=== PATIENT | male | born 1960 | race Caucasian/White ===

== ENCOUNTER 2024-07-17 08:41 | Day surgery (SDC) | payer OTHER ==
[~2024-07-17] VITALS: Ht 177.8 cm; Wt 96.0 kg
[~2024-07-17 08:41] MED LIST: AMOCLA875 PO; Bupivacaine 0.5% HCl 5 MG/ML 30MLVIAL ONE; HYDR1TAB94 PO
[2024-07-17] MEDS ORDERED: Lactated Ringer's 1,000 ML IV ONE ×3 (09:15→10:10)
[2024-07-17] MEDS ORDERED: MONDOXYNE NL100 MG (09:17)
[2024-07-17] MEDS ORDERED: METFORMIN HCL500 M2 (09:21)
[2024-07-17] MEDS ORDERED: CARVEDILOL25 M9 (09:22)
[2024-07-17] MEDS ORDERED: GLIP5 (09:23)
[2024-07-17] MEDS ORDERED: HYDRA50 (09:24)
[2024-07-17] MEDS ORDERED: LOSA50 (09:26)
[2024-07-17] MEDS ORDERED: CeFAZolin Sodium 2,000 MG VIAL ONE (09:36)
[2024-07-17] MEDS ORDERED: NS 50 ML IV ONE (09:37)
[2024-07-17] MEDS ORDERED: propofoL 40 ML IV ONE (10:08)
[2024-07-17] MEDS ORDERED: Phenylephrine HCl 100 MCG/ML-NS 10MLSYR (1MG/10ML) ONE (10:21)
--- NOTE | 2024-07-17 10:24 | NUR ---
07/17/24 1024 Yvette Bach PT HAS OPEN AREA TO RIGHT 4TH TOE
[2024-07-17] MEDS ORDERED: Bupivacaine 0.5% HCl 5 MG/ML 30MLVIAL INJ ONE (10:31)
[2024-07-17 11:02] VITALS: BP 119/81
--- NOTE | 2024-07-17 12:31 | NUR ---
07/17/24 1231 LUCRETIA KLEIN PT COMBATIVE WITH MED TRANS SETTLEMENT AGENT WHEN TOLD HE WOULD NEED TO SCHEDULE ANOTHER RIDE TO [employer]OPER SCRIPT FROM PHARM. ISSUE RESOLVED AND PT LEFT WITH TRANSPORTER. END NOTE RDS
--- NOTE | 2024-07-17 14:18 | NUR ---
07/17/24 1418 EL ALCARAZ PT DOING WELL. VITALS STRIP DID NOT PRINT. PT WAS ALERT AND ORIENTED PRIOR TO DC.
== END 2024-07-17 11:45 | disposition home or self-care (01) ==
LOC: ORSCSDS 08:41
PROVIDERS: Podiatrist Foot & Ankle Surgery
PROC: 0Y6T0Z0 Detachment at Right 3rd Toe, Complete, Open Approach (ICD-10-PCS; principal; 2024-07-17 10:15)
PROC: 0Y6V0Z0 Detachment at Right 4th Toe, Complete, Open Approach (ICD-10-PCS; principal; 2024-07-17 10:15)
DX: E11.621 Type 2 diabetes mellitus with foot ulcer (principal); M86.8X7 Other osteomyelitis, ankle and foot; I10 Essential (primary) hypertension; Z79.84 Long term (current) use of oral hypoglycemic drugs; Z79.899 Other long term (current) drug therapy
CPT/HCPCS: 82947; 88305; J0690; J2371; J2704; J7120

== ENCOUNTER → 2024-10-23 | Outpatient (CLI) | payer MEDICARE, OTHER ==
[~2024-10-23] MED LIST changes: -Bupivacaine 0.5% HCl 5 MG/ML 30MLVIAL ONE; +CARVEDILOL25 M9; +GLIP5; +HYDRA50; +LOSA50; +METFORMIN HCL500 M2; +MONDOXYNE NL100 MG
[2024-10-23 16:43] LABS: Source, Urine Voided
[2024-10-23 17:31] LABS: Appearance, Urine Clear (Clear); Bilirubin, Urine Neg (Neg); Blood, Urine 1+ (Neg); Color, Urine Yellow (P-Yellow); Glucose Qualitative, Urine 3+ (Neg); Ketones, Urine Neg (Neg); Leukocyte Esterase, Urine Neg (Neg); Nitrite, Urine Neg (Neg); Protein, Urine 1+ (Neg); Specific Gravity, Urine 1.025 (1.003-1.022); Urobilinogen, Urine NORM (Normal)
[2024-10-23 17:39] LABS: Bacteria Few /hpf; Squamous Epithelial Cells Rare /hpf (Few); White Blood Cells, Urine 0-2 /hpf (0-5)
== END ==
LOC: LAB SHORT 16:38 → LAB 16:38
PROVIDERS: Student in an Organized Health Care Education/Training Program
DX: R10.9 Unspecified abdominal pain (principal)
CPT/HCPCS: 81001

== ENCOUNTER 2025-11-05 03:11 | Day surgery (SDC) | payer MEDICARE, OTHER ==
[2025-11-05] MEDS ORDERED: Lidocaine HCl 4% Cream 5 GM ONE (12:06)
== END 2025-11-05 23:00 | disposition home or self-care (01) ==
LOC: WOUND 03:11
DX: E11.621 Type 2 diabetes mellitus with foot ulcer (principal); L97.422 Non-pressure chronic ulcer of left heel and midfoot with fat layer exposed; E11.42 Type 2 diabetes mellitus with diabetic polyneuropathy; I10 Essential (primary) hypertension
CPT/HCPCS: A9270; G0463

== ENCOUNTER 2025-11-10 00:24 | Day surgery (SDC) | payer MEDICARE, OTHER | END 2025-11-10 23:00 | disposition home or self-care (01) | LOC: WOUND 00:24 | DX: E11.621 Type 2 diabetes mellitus with foot ulcer (principal); L97.422 Non-pressure chronic ulcer of left heel and midfoot with fat layer exposed; E11.40 Type 2 diabetes mellitus with diabetic neuropathy, unspecified; I10 Essential (primary) hypertension; E53.8 Deficiency of other specified B group vitamins; E55.9 Vitamin D deficiency, unspecified | CPT/HCPCS: 36415; 82306; 82607; 82746 ==

== ENCOUNTER 2025-11-28 03:28 | Inpatient (IN) | payer MEDICARE, OTHER ==
[~2025-11-28] VITALS: Ht 180.3 cm; Wt 91.0 kg
[2025-11-28] VITALS (7 sets, daily range): BP systolic 97–182; BP diastolic 58–95
[~2025-11-28 03:28] MED LIST changes: -CARVEDILOL25 M9; +CARVEDILOL25 M9 PO; -GLIP5; +GLIP5 PO; -LOSA50; +LOSA50 PO; -METFORMIN HCL500 M2; +METFORMIN HCL500 M2 PO
[2025-11-28 04:37] LABS: BASOPHILS ABSOLUTE AUTO 0.03 K/mm3 (0.00-0.23); BASOPHILS PERCENT AUTO 0 % (0-2); EOSINOPHILS ABSOLUTE AUTO 0.09 K/mm3 (0.00-0.68); EOSINOPHILS PERCENT AUTO 1 % (0-6); Hematocrit 34.5 % (37.0-53.0); Hemoglobin 12.2 g/dL (13.5-17.5); IMMATURE GRAN ABSOLUTE AUTO 0.04 K/mm3 (0.00-0.10); IMMATURE GRAN PERCENT AUTO 0 % (0-1); LYMPHOCYTES ABSOLUTE AUTO 0.65 K/mm3 (0.84-5.20); LYMPHOCYTES PERCENT AUTO 5 % (21-46); MONOCYTES ABSOLUTE AUTO 1.19 K/mm3 (0.16-1.47); MONOCYTES PERCENT AUTO 10 % (4-13); Mean Corpuscular HGB Conc 35.4 g/dL (31.5-36.5); Mean Corpuscular Volume 93 fL (80-100); NEUTROPHILS ABSOLUTE AUTO 10.33 K/mm3 (1.96-9.15); NEUTROPHILS PERCENT AUTO 84 % (41-73); NRBC ABSOLUTE 0.00 K/mm3 (0.00-0.02); NRBC Auto 0.0 /100 WBC (0.0-0.2); Platelet Count 148 K/mm3 (150-400); RDW Coefficient Variation 12.3 % (11.7-14.2); RDW Standard Deviation 42.3 fL (35.1-46.3)
[2025-11-28 05:25] LABS: Alanine Aminotransfer (ALT/SGP 19 U/L (12-78); Albumin, Blood 3.0 g/dL (3.4-5.0); Albumin/Globulin Ratio 0.9 (0.8-1.8); Anion Gap 8 mmol/L (3-11); Aspartate Aminotrans (AST/SGOT 13 U/L (12-37); Bilirubin, Total 1.2 mg/dL (0.1-1.0); Blood Urea Nitrogen 17 mg/dL (8-24); CO2, Blood 28 mmol/L (21-32); Calcium, Blood 8.9 mg/dL (8.5-10.1); Chloride, Blood 99 mmol/L (98-108); Creatinine, Blood 0.71 mg/dL (0.60-1.20); Globulin, Blood 3.5 g/dL (2.2-4.0); Glucose, Blood 154 mg/dL (70-99); Potassium, Blood 3.9 mmol/L (3.5-5.5); Sodium, Blood 131 mmol/L (136-145); Total Protein, Blood 6.5 g/dL (6.4-8.2)
[2025-11-28 05:40] LABS: C-REACTIVE PROTEIN, EXT RANGE >19.000 mg/dL (0.000-0.300)
[2025-11-28] MEDS ORDERED: CefTRIAXone Sodium 1,000 MG in NS 100 ML IV ONE (05:45)
[2025-11-28] MEDS ORDERED: FLU VACC TS2025(65UP)/MF59C/PF 45 MCG/0.5 ML SYRINGE IM SCH (07:10)
[2025-11-28] MEDS ORDERED: HYDROmorphone HCl/Pf 1MG SYR IV PRN (07:10)
[2025-11-28] MEDS ORDERED: NS 1,000 ML IV SCH (07:10)
--- NOTE | 2025-11-28 11:45 | NUR ---
PT ARRIVED TO THE ROOM FROM ER AT 0935. PT ORIENTED TO ROOM AND UNIT. CALL LIGHT PLACED WITHIN REACH.
--- NOTE | 2025-11-28 15:07 | NUR ---
DR. WESLEY ROUNDED AT 1420 AND DID A BEDSIDE DEBRIDEMENT OF THE L FOOT ULCER. PT TOLERATED WELL, PHOTO OF THE WOUND WAS TAKEN, WOUND WAS RE-DRESSED. TISSUE SAMPLE AND WOUND CULTURE SENT TO LAB. DR. ESTRADA NOTIFIED OF DR. WESLEY REQUEST FOR IV ABX. DR. ESTRADA TALKING WITH PATIENT AT THIS TIME.
--- NOTE | 2025-11-28 15:12 | NUR ---
DR. ESTRADA NOTIFIED THAT PT REFUSED COREG THIS MORNING. PT WAS GIVEN EDUCATION THAT IT IS IMPORTANT NOT TO SKIP DOSES OF COREG, PT STILL DECLINED.
[2025-11-28] MEDS ORDERED: Vancomycin (Pharmacy Consult) IV SCH (15:20)
[2025-11-28] MEDS ORDERED: Piperacillin/Tazobactam Sod 4.5 GM in NS 100 ML IV SCH (15:22)
[2025-11-28] MEDS ORDERED: Insulin Human Lispro 100 Units/ML 3ML Syringe SC SCH (16:30)
--- NOTE | 2025-11-28 17:45 | NUR ---
SHIFT SUMMARY PAIN HAS BEEN INTERMITTENT T/O THE DAY. PT GIVEN TYLENOL FOR PAIN AND FEVER. THIS EVENING TEMP WAS 101.3. PT IS A SBA WHEN OOB. PT HAS BEEN ANXIOUS T/O THE DAY BUT RESPONDS WELL TO CALM INSTRUCTION AND EDUCATION. BP ELEVATED THIS EVENING, COREG GIVEN ORDERED. PT USES THE CALL LIGHT APPROPRIATELY.
--- NOTE | 2025-11-28 19:33 | NUR ---
HYPOTENSION BP RECHECKED AT 183, BP LOW. SEVERAL BP READINGS TAKEN 86/51, 100/55, 93/65. PT ASYMPTOMATIC. DR. UNDERWOOD NOTIFIED. BP RECHECKED AT 190, 97/58. PT REMAINS ASYMPTOMATIC. BP NOW 110/63.
[2025-11-29 05:27] VITALS: BP 125/77
[2025-11-29 05:39] LABS: BASOPHILS ABSOLUTE AUTO 0.03 K/mm3 (0.00-0.23); BASOPHILS PERCENT AUTO 0 % (0-2); EOSINOPHILS ABSOLUTE AUTO 0.06 K/mm3 (0.00-0.68); EOSINOPHILS PERCENT AUTO 1 % (0-6); Hematocrit 29.7 % (37.0-53.0); Hemoglobin 10.2 g/dL (13.5-17.5); IMMATURE GRAN ABSOLUTE AUTO 0.03 K/mm3 (0.00-0.10); IMMATURE GRAN PERCENT AUTO 0 % (0-1); LYMPHOCYTES ABSOLUTE AUTO 0.72 K/mm3 (0.84-5.20); LYMPHOCYTES PERCENT AUTO 8 % (21-46); MONOCYTES ABSOLUTE AUTO 0.90 K/mm3 (0.16-1.47); MONOCYTES PERCENT AUTO 9 % (4-13); Mean Corpuscular HGB Conc 34.3 g/dL (31.5-36.5); Mean Corpuscular Volume 94 fL (80-100); NEUTROPHILS ABSOLUTE AUTO 7.89 K/mm3 (1.96-9.15); NEUTROPHILS PERCENT AUTO 82 % (41-73); NRBC ABSOLUTE 0.00 K/mm3 (0.00-0.02); NRBC Auto 0.0 /100 WBC (0.0-0.2); Platelet Count 133 K/mm3 (150-400); RDW Coefficient Variation 12.6 % (11.7-14.2); RDW Standard Deviation 43.2 fL (35.1-46.3)
[2025-11-29 06:22] LABS: Magnesium, Blood 2.1 mg/dL (1.6-2.4)
[2025-11-29 06:26] LABS: Alanine Aminotransfer (ALT/SGP 14 U/L (12-78); Albumin, Blood 2.4 g/dL (3.4-5.0); Albumin/Globulin Ratio 0.8 (0.8-1.8); Anion Gap 8 mmol/L (3-11); Aspartate Aminotrans (AST/SGOT 8 U/L (12-37); Bilirubin, Total 0.8 mg/dL (0.1-1.0); Blood Urea Nitrogen 19 mg/dL (8-24); C-REACTIVE PROTEIN, EXT RANGE >19.000 mg/dL (0.000-0.300); CO2, Blood 25 mmol/L (21-32); Calcium, Blood 8.0 mg/dL (8.5-10.1); Chloride, Blood 103 mmol/L (98-108); Creatinine, Blood 0.85 mg/dL (0.60-1.20); Globulin, Blood 3.2 g/dL (2.2-4.0); Glucose, Blood 194 mg/dL (70-99); Phosphorus, Blood 3.0 mg/dL (2.5-4.9); Potassium, Blood 3.6 mmol/L (3.5-5.5); Sodium, Blood 132 mmol/L (136-145); Total Protein, Blood 5.6 g/dL (6.4-8.2)
--- NOTE | 2025-11-29 07:22 | NUR ---
SHIFT SUMMARY NOC. PT ADMIT FOR ULCER OF LEFT FOOT. PT A/O X4, ANXIOUS ABOUT CARE AND ASKS FREQUENT QUESTIONS. PT WILL YELL OUT IN PAIN AT TIMES, BUT HESITANT TO TAKE PAIN MEDICATION OCCASIONALLY. PT'S DRESSING ON LEFT FOOT C/D/I. PT HAS FLUIDS RUNNING AND RECEIVING ABX PER EMAR. PT'S BP WAS LABILE AT START OF SHIFT BUT STABILIZED. PT ALSO HAD TEMPERATURES REDUCED WITH TYLENOL, COOL WASHCLOTHS, AND REDUCING ROOM TEMP, AND BLANKETS. PT TOLERATING PO INTAKE AND VOIDING URINE. CALL LIGHT IN REACH.
[2025-11-29 07:37] VITALS: BP 124/72
[2025-11-29] MEDS ORDERED: Enoxaparin 40 MG/0.4 ML SYR SC SCH (09:00)
[2025-11-29 15:58] VITALS: BP 166/96
--- NOTE | 2025-11-29 18:39 | NUR ---
SUMMARY ASSUMED CARE OF PT @0700. PT LOUD/VERBAL HAS FORCED SPEECH AND IS DIFFICULT TO REDIRECT AT TIMES. HASN'T REQUIRED PAIN MEDS OUTSIDE OF TYLENOL TODAY. VSS. R L FOOT DRESSING CHANGED BY DR WESLEY AT END OF SHIFT - REPACKED AND REWRAPPED. TOLERATING PO INTAKE WELL. VOIDING WELL. REQUIRED INSULIN WITH MEALS TODAY. PT AT TIMES REFUSES CARE BUT IS GENERALLY COMPLAINT. YELLS OUT OFTEN. PT HAS AMBULATED TODAY DESPITE BEING EDUCATED TO NOT WALK ON FOOT. WOUND PRESENTS DIME SIZE WITH PROGRESSION TO BONE. PT USING CALL LIGHT APPROPRIATELY THIS SHIFT.
[2025-11-29 19:09] VITALS: BP 129/69
[2025-11-29] MEDS ORDERED: Lactobacil 2-S.Thermo-Bifido 1 1 Cap PO SCH (21:00)
[2025-11-30 04:12] VITALS: BP 139/70
[2025-11-30 04:18] LABS: BASOPHILS ABSOLUTE AUTO 0.05 K/mm3 (0.00-0.23); BASOPHILS PERCENT AUTO 1 % (0-2); EOSINOPHILS ABSOLUTE AUTO 0.12 K/mm3 (0.00-0.68); EOSINOPHILS PERCENT AUTO 1 % (0-6); Hematocrit 29.2 % (37.0-53.0); Hemoglobin 10.3 g/dL (13.5-17.5); IMMATURE GRAN ABSOLUTE AUTO 0.02 K/mm3 (0.00-0.10); IMMATURE GRAN PERCENT AUTO 0 % (0-1); LYMPHOCYTES ABSOLUTE AUTO 0.98 K/mm3 (0.84-5.20); LYMPHOCYTES PERCENT AUTO 11 % (21-46); MONOCYTES ABSOLUTE AUTO 0.79 K/mm3 (0.16-1.47); MONOCYTES PERCENT AUTO 9 % (4-13); Mean Corpuscular HGB Conc 35.3 g/dL (31.5-36.5); Mean Corpuscular Volume 95 fL (80-100); NEUTROPHILS ABSOLUTE AUTO 6.64 K/mm3 (1.96-9.15); NEUTROPHILS PERCENT AUTO 77 % (41-73); NRBC ABSOLUTE 0.00 K/mm3 (0.00-0.02); NRBC Auto 0.0 /100 WBC (0.0-0.2); Platelet Count 142 K/mm3 (150-400); RDW Coefficient Variation 12.4 % (11.7-14.2); RDW Standard Deviation 42.8 fL (35.1-46.3)
[2025-11-30 04:48] LABS: Vancomycin, Trough 11.1 ug/mL (5.0-10.0)
[2025-11-30 04:50] LABS: Anion Gap 8.0 mmol/L (3-11); Blood Urea Nitrogen 14.0 mg/dL (8-24); CO2, Blood 25.0 mmol/L (21-32); Calcium, Blood 8.3 mg/dL (8.5-10.1); Chloride, Blood 103.0 mmol/L (98-108); Creatinine, Blood 0.82 mg/dL (0.60-1.20); Glucose, Blood 243.0 mg/dL (70-99); Potassium, Blood 4.0 mmol/L (3.5-5.5); Sodium, Blood 132.0 mmol/L (136-145)
--- NOTE | 2025-11-30 06:05 | NUR ---
SHIFT SUMMARY PT ADMITTED FOR CELLULITIS OF L FOOT. A&O X4. PT LOUD AND FREQUENTLY YELLS OUT. PT HAS FORCED SPEECH W/ FLIGHT OF IDEAS. DIFFICULT TO REDIRECT PT AT TIMES. PT ANXIOUS AND ASKS FREQUENT QUESTIONS REGARDING CARE. PT CONSISTENTLY INTERRRUPTED EXPLANATION OF CARE AND EDUCATION PROVIDED. PT UNRECEPTIVE TO EDUCATION PROVIDED. PAIN MANAGED WELL PER EMAR. DRESSING TO LLE C/D/I. PT CONTINUES TO AMBULATE IN ROOM DESPITE BEING EDUCATED TO NOT BEAR WEIGHT ON L FOOT. PT SITTING IN BED WATCHING TV. CALL LIGHT WITHIN REACH.
[2025-11-30 07:49] VITALS: BP 156/86
[2025-11-30 15:16] VITALS: BP 167/90
--- NOTE | 2025-11-30 18:53 | NUR ---
SHIFT SUMMARY: NO NEW OR ACUTE CHANGES DURING THIS DAY. CONT IV ABX AT THIS TIME. WOUND DRESSING CHANGED ON FOOT, IODOFORM, ABD PAD, KERLEX, SALINE, AND GAUZE UTILIZED. PATIENT TOLERATED WELL WITH NO COMPLAINTS OF DISCOMFORT. BED IN LOWEST POSITION, CALL LIGHT WITHIN REACH.
[2025-11-30 19:16] VITALS: BP 153/80
--- NOTE | 2025-12-01 04:27 | NUR ---
SHIFT SUMMARY DYLAN WAS A/O X4 ON ASSESSMENT. PAIN WELL MANAGED. PT DENIES SOB, CHEST PAIN, NAUSEA. DRESSING TO L FOOT C/D/I. TOE TOUCH WB TO L FOOT. BT ABLE TO WIGGLE TOES, CAP REFIL <3 SECONDS. NO ACUTE EVENTS TONIGHT. NO NOTED CHANGES TO PT CONDITION.
[2025-12-01 04:42] LABS: Vancomycin, Trough 15.2 ug/mL (5.0-10.0)
[2025-12-01 05:07] VITALS: BP 147/77
[2025-12-01 07:19] VITALS: BP 159/82
--- NOTE | 2025-12-01 07:35 | NUR ---
ROUNDING:DR RUBALCAVA AND DR FONSECA IN ROOM TO SEE PATIENT. PT EDUCATED ON OPTIONS FOR TREATMENT. PT MAKES STATEMENT TO DOCTOR THAT HE "WOULD RATHER KILL HIMSELF" THAN FROM INFECTION, HOWEVER HE DECLINES BKA TODAY. PT STATES HE NEEDS TO GO HOME AND "PAY MY RENT." WILL RELAY PT STATEMENTS AND WISHES TO CARE MANAGEMENT AND PRIMARY RN.
[2025-12-01] MEDS ORDERED: DOXY100 PO (14:32)
[2025-12-01] MEDS ORDERED: TRAM50 PO (14:33)
[2025-12-01] MEDS ORDERED: LEVO750 PO (14:33)
--- NOTE | 2025-12-01 15:00 | NUR ---
DISCHARGE: PT DC TO HOME AT THIS TIME VIA [facility]. PT VERBALIZED UNDERSTANDING OF INSTRUCTIONS, FOLLOW UP, PROBLEMS TO REPORT AND MEDICATIONS. PT GIVEN SCRIPT FOR TRAMADOL. OTHER MEDS FAXED TO PT PHARMACY. PT EDUCATED REGARDING PHARMACY HOURS R/T THE [facility]. PT GIVEN DRESSING SUPPLIES AND ASSISTED TO DRESS. IV DC'D WNL. PT ASSISTED TO WHEELCHAIR WITH CANE. BELONGINGS WITH PATIENT. PT ASSISTED INTO CAB BY THIS RN.
--- NOTE | 2025-12-01 15:43 | NUR ---
ASSUMED CARE OF PT @0700. AXO4 - BASELINE MENTATION/CONVERSATIONS. NONCOMPLIANT. VSS. DRESSING CHANGED TO L FOOT/ RE PACKED/CLEANSED WITH SALINE AFTER DR FONSECA AND DR RUBALCAVA ASSESSED WOUND - BOTH PHYSICIANS EDUCATED PATIENT ON THEIR SUGGESTION FOR BKA TO THE L LEG. PT AWARE OF THIS WELL POSSIBILITY, THOUGH NOT SUGGESTED, OF CONTINUED WOUND CARE AND MINUTE POSSIBILITY OF HEALING. DURING CONVERSATION, PT MADE STATEMENT, "I WOULD RATHER KILL MYSELF THAN OF AN INFECTION". THIS STATEMENT MADE KNOWN TO HOSPITALIST - DIRECTIONS TO COMPLETE SI SCREENING ON PT - COMPLETED AND CHARTED, PT PRESENTS NO SUICIDE RISK PER ASSESMENT.STATES "YOU CAN'T SAY ANYTHING TO PEOPLE ANYMORE, I WAS JUST SAYING I WOULDN'T LET MYSELF OF AN INFECTION, I'VE NEVER WANTED TO KILL MYSELF NOR WOULD I." DR MORA MADE AWARE. DEEMED OK TO FOLLOW THROUGH WITH PT'S DC WISHES. PT DECIDED TO DC HOME DESPITE AMPLE EDUCATION. WILLING TO TAKE ANTIBIOTICS AND GO TO WOUND CARE AND POTENTIALLY RETURN FOR SURGERY (PT HAS BEEN REQUESTING / AT TIMES DEMANDING/ TO GO HOME FOR THE LAST 3 SHIFTS DUE TO NEEDING TO "PAY RENT, CREDIT ADMINISTRATION OFFICER PRESCRIPTIONS, AND NOT BE IN THE HOSPITAL". DR MORA FOLLOWED PT'S WISHES. DR FONSECA AND GINI BOTH NOTIFIED OF THIS. DC INSTRUCTIONS ORDERED - PROVIDED. PT HAD TRANSPORT CALLED TO TAKE HIM TO PHARMACY AND HOME. WOUND CARE CLINIC ORDERS PLACED. WOUND DRESSING CDI UPON DC. PT PROVIDED WITH CARE INSTRUCTIONS. IV PULLED. VSS. PT WHEELED OUT OF FACILITY @1517. THIS RN RELINQUISHED CARE OF PT TO YASMEEN Vasques RN FROM 1400 TO TIME OF DC @1517.
== END 2025-12-01 15:16 | disposition home or self-care (01) | DRG 854 ==
LOC: ER 03:28 → SURS 07:06
PROVIDERS: Emergency Medicine; Family Medicine; ADMIT Family Medicine
PROC: 3E03329 Introduction of Other Anti-infective into Peripheral Vein, Percutaneous Approach (ICD-10-PCS; principal; 2025-11-28)
PROC: 3E02340 Introduction of Influenza Vaccine into Muscle, Percutaneous Approach (ICD-10-PCS; 2025-11-28)
PROC: 0JDR0ZZ Extraction of Left Foot Subcutaneous Tissue and Fascia, Open Approach (ICD-10-PCS; 2025-11-29)
DX: A41.9 Sepsis, unspecified organism (principal); E87.1 Hypo-osmolality and hyponatremia; M86.172 Other acute osteomyelitis, left ankle and foot; L03.116 Cellulitis of left lower limb; E11.610 Type 2 diabetes mellitus with diabetic neuropathic arthropathy; E11.621 Type 2 diabetes mellitus with foot ulcer; E11.69 Type 2 diabetes mellitus with other specified complication; D69.6 Thrombocytopenia, unspecified; L97.529 Non-pressure chronic ulcer of other part of left foot with unspecified severity; E11.42 Type 2 diabetes mellitus with diabetic polyneuropathy; I10 Essential (primary) hypertension; E11.319 Type 2 diabetes mellitus with unspecified diabetic retinopathy without macular edema; F41.1 Generalized anxiety disorder; N40.0 Benign prostatic hyperplasia without lower urinary tract symptoms; D64.9 Anemia, unspecified; F43.25 Adjustment disorder with mixed disturbance of emotions and conduct; E78.5 Hyperlipidemia, unspecified; Z23 Encounter for immunization; Z89.511 Acquired absence of right leg below knee; Z79.899 Other long term (current) drug therapy; Z79.84 Long term (current) use of oral hypoglycemic drugs; Z79.2 Long term (current) use of antibiotics; Z98.41 Cataract extraction status, right eye; Z98.42 Cataract extraction status, left eye; Z90.89 Acquired absence of other organs; Z79.891 Long term (current) use of opiate analgesic; Z68.29 Body mass index [BMI] 29.0-29.9, adult
CPT/HCPCS: 36415; 73620; 73701; 80048; 80053; 80202; 82565; 82947; 83605; 83735; 84100; 85025; 85651; 86140; 87070; 87071; 87075; 87205; 96365; 99285-25; A9270; J0696; J2543; J3373; J7030; J7040; J7050; Q9967